=== PATIENT | female | born 1955 | race American Indian/Alaskan Native ===

== ENCOUNTER 2016-08-28 17:14 | Emergency (ER) | payer OTHER ==
--- NOTE | 2016-08-28 17:55 | Emergency Department Report ---
Chief Complaint: High BP Stated Complaint: HIGH BP/CHEST PAIN/RT ARM PAIN/LEG PAIN Time Seen by Provider: 08/28/16 17:49 - HPI History of Present Illness: 61-year-old female comes in for concern of elevated blood pressure. Patient reports that she went her PMD on Tuesday for cold-like symptoms 1 year and neck pain and upper back pain times a couple months. Patient reports she has not consistent with her blood pressure medications. Patient reports that her blood pressures been elevated for the last week while monitoring it. Patient does report that she took an extra half of verapamil around 2 PM. She reports her blood pressures been as high as 205 over over 90 she thinks. He complains of chest pain and nausea denies any vomiting. Having headaches lately. - Exam Vital Signs: Vital Signs 08/28/16 17:18 Temperature 99.0 F Pulse Rate 78 Respiratory 18 Rate Blood Pressure 165/97 O2 Sat by Pulse 98 Oximetry Physical Exam: Patient is alert and oriented. Cardio: Regular rate and rhythm notices systolic murmur Respiratory: Clear to auscultation bilateral Abdomen: Bowel sounds throughout nondistended no tenderness Extremities: There is no edema appreciated. MSE screening note: Focused history and physical exam performed. Due to findings the following was ordered: Chest pain protocol ordered patient be evaluated in the back ED Disposition for MSE Condition: Stable
[2016-08-28 18:14] LABS: Hematocrit 39.3 % (30.3-42.9); Hemoglobin 12.9 gm/dl (10.1-14.3); Mean Corpuscular HGB Conc 33 % (30-34); Mean Corpuscular Hemoglobin 28 pg (28-32); Mean Corpuscular Volume 87 fl (79-97); Platelet Count 224 K/mm3 (140-440); Red Blood Count 4.54 M/mm3 (3.65-5.03); Red Cell Distribution Width 13.7 % (13.2-15.2); White Blood Count 7.2 K/mm3 (4.5-11.0)
[2016-08-28 18:37] LABS: Creatine Kinase MB 4.4 ng/mL (0.0-4.0)
[2016-08-28 18:38] LABS: BUN/Creatinine Ratio 17.77; Blood Urea Nitrogen 16 mg/dL (7-17); Calcium 9.8 mg/dL (8.4-10.2); Carbon Dioxide 26 mmol/L (22-30); Chloride 102.9 mmol/L (98-107); Creatine Kinase 254 units/L (30-135); Glucose 98 mg/dL (65-100); Potassium 3.8 mmol/L (3.6-5.0); Sodium 141 mmol/L (137-145)
[2016-08-28 18:40] LABS: Anion Gap 16 mmol/L
[2016-08-29 03:38] VITALS: BP 153/78
--- NOTE | 2016-08-29 03:39 | Emergency Department Report ---
ED General Adult HPI - General Chief complaint: High BP Stated complaint: HIGH BP/CHEST PAIN/RT ARM PAIN/LEG PAIN Time Seen by Provider: 08/28/16 17:49 Source: patient Mode of arrival: Ambulatory Limitations: No Limitations - History of Present Illness Initial comments: 61-year-old female presents to the emergency department complaining of elevated blood pressure. Patient states that she saw her primary care physician on Tuesday. She states she was told her blood pressure was in the 170s at that time. She states that sometimes she forgets to take her blood pressure medications. Since that doctor's visit she has been monitoring her blood pressures at home. She states her systolic blood pressure ranges from 150 up to 205. She states when her blood pressure is that she has headaches and occasional chest pain. At this time, the patient reports no symptoms. There are no other complaints. -: Gradual, days(s) (4) Location: head, chest Severity scale (0 -10): 5 Quality: aching Consistency: intermittent Improves with: none Worsens with: none Associated Symptoms: denies other symptoms - Related Data Home Medications Medication Instructions Recorded Confirmed Last Taken Lisinopril [Zestril] 20 mg PO QDAY 05/14/13 05/14/13 05/13/13 Verapamil ER [Calan Sr] 180 mg PO 05/14/13 05/14/13 05/13/13 Previous Rx's Medication Instructions Recorded Last Taken Type EPINEPHrine [Epipen 2-Abelardo] 0.3 mg IM PRN #2 dose 05/14/13 Unknown Rx predniSONE [Deltasone] 5 mg PO QDAY #4 tab 05/14/13 Unknown Rx HYDROcodone/APAP 5-325 [[place] 1 each PO Q6HR PRN #12 tablet 06/25/15 Unknown Rx 5/325] Allergies Allergy/AdvReac Type Severity Reaction Status Date / Time milk Allergy Rash Verified 08/28/16 17:42 peanut Allergy Anaphylaxis Verified 08/28/16 17:42 chocolate flavor AdvReac NASAL Verified 08/28/16 17:43 CONGESTION strawberry AdvReac NASAL Verified 08/28/16 17:43 CONGESTION ED Review of Systems ROS: Stated complaint: HIGH BP/CHEST PAIN/RT ARM PAIN/LEG PAIN Other details as noted in HPI Comment: All other systems reviewed and negative Cardiovascular: as per HPI, chest pain Neurological: headache ED Past Medical Hx - Past Medical History Previous Medical History?: Yes Hx Hypertension: Yes - Surgical History Past Surgical History?: No - Family History Family history: no significant - Social History Smoking Status: Never Smoker Substance Use Type: Alcohol (occasional) - Medications Home Medications: Home Medications Medication Instructions Recorded Confirmed Last Taken Type EPINEPHrine [Epipen 2-Abelardo] 0.3 mg IM PRN #2 dose 05/14/13 Unknown Rx Lisinopril [Zestril] 20 mg PO QDAY 05/14/13 05/14/13 05/13/13 History Verapamil ER [Calan Sr] 180 mg PO 05/14/13 05/14/13 05/13/13 History predniSONE [Deltasone] 5 mg PO QDAY #4 tab 05/14/13 Unknown Rx HYDROcodone/APAP 5-325 [[place] 1 each PO Q6HR PRN #12 tablet 06/25/15 Unknown Rx 5/325] ED Physical Exam - General Limitations: No Limitations General appearance: alert, in no apparent distress - Head Head exam: Present: atraumatic, normocephalic - Eye Eye exam: Present: normal appearance, PERRL, EOMI - ENT ENT exam: Present: normal exam, normal orophraynx, mucous membranes moist - Neck Neck exam: Present: normal inspection, full ROM. Absent: tenderness - Respiratory Respiratory exam: Present: normal lung sounds bilaterally. Absent: respiratory distress - Cardiovascular Cardiovascular Exam: Present: regular rate, normal rhythm, normal heart sounds - GI/Abdominal GI/Abdominal exam: Present: soft, normal bowel sounds. Absent: distended, tenderness - Extremities Exam Extremities exam: Present: normal inspection, full ROM. Absent: tenderness - Back Exam Back exam: Present: normal inspection, full ROM. Absent: tenderness - Neurological Exam Neurological exam: Present: alert, oriented X3. Absent: motor sensory deficit - Skin Skin exam: Present: warm, dry, intact ED Course Vital Signs 08/28/16 08/29/16 08/29/16 17:18 01:58 02:52 Temperature 99.0 F 97.3 F L Pulse Rate 78 67 Respiratory 18 18 Rate Blood Pressure 165/97 141/90 154/74 O2 Sat by Pulse 98 100 Oximetry 08/29/16 08/29/16 03:00 03:13 Temperature Pulse Rate 58 L Respiratory 20 16 Rate Blood Pressure 144/76 O2 Sat by Pulse 100 Oximetry ED Medical Decision Making - Lab Data Result diagrams: 08/28/16 18:03 08/28/16 18:02 - EKG Data -: EKG Interpreted by Me EKG shows normal: sinus rhythm, axis, ST-T waves Rate: normal - EKG Data When compared to previous EKG there are: no significant change Interpretation: unchanged when compared t (12/02/2009), LVH, other (first degree AV block) - Medical Decision Making Lab results reviewed and discussed with the patient. Blood pressure has remained within acceptable limits in the emergency department. Patient counseled on the need to be consistent with taking her blood pressure medication. Patient will be discharged home at this time to follow up with her primary care physician. - Differential Diagnosis hypertension, electrolyte abnormality, ACS Critical care attestation.: If time is entered above; I have spent that time in minutes in the direct care of this critically ill patient, excluding procedure time. ED Disposition Clinical Impression: Essential hypertension Disposition: DISCHARGED TO HOME OR SELFCARE Is pt being admited?: No Condition: Stable Instructions: Hypertension (ED) Referrals: YESSI DUMONT MD [Primary Care Provider] - 3-5 Days Time of Disposition: 03:44
== END 2016-08-29 03:57 | disposition home or self-care (01) ==
LOC: ED 17:14
DX: I10 Essential (primary) hypertension (principal); R07.9 Chest pain, unspecified; Z91.010 Allergy to peanuts; Z91.011 Allergy to milk products; Z91.018 Allergy to other foods
CPT/HCPCS: 36415; 80048; 82550; 82553; 84484; 85025; 93005; 93010; 99283

== ENCOUNTER 2017-10-16 07:16 | Inpatient (IN) | payer OTHER ==
[2017-10-16 07:57] LABS: Basophils # (Auto) 0.1 K/mm3 (0.0-0.1); Basophils % (Auto) 0.8 % (0.0-1.8); Eosinophils # (Auto) 0.2 K/mm3 (0.0-0.4); Eosinophils % (Auto) 1.5 % (0.0-4.3); Hematocrit 42.8 % (30.3-42.9); Hemoglobin 13.8 gm/dl (10.1-14.3); Lymphocytes # (Auto) 1.8 K/mm3 (1.2-5.4); Lymphocytes % (Auto) 16.3 % (13.4-35.0); Mean Corpuscular HGB Conc 32 % (30-34); Mean Corpuscular Hemoglobin 28 pg (28-32); Mean Corpuscular Volume 88 fl (79-97); Monocytes # (Auto) 0.8 K/mm3 (0.0-0.8); Monocytes % (Auto) 7.4 % (0.0-7.3); Red Blood Count 4.88 M/mm3 (3.65-5.03); Red Cell Distribution Width 14.1 % (13.2-15.2)
[2017-10-16 08:02] LABS: Platelet Count 261 K/mm3 (140-440)
[2017-10-16 08:06] LABS: INR 0.9 (0.87-1.13)
[2017-10-16 08:07] LABS: Partial Thromboplastin Time 27.5 Sec. (24.2-36.6)
[2017-10-16 08:13] LABS: BUN/Creatinine Ratio 15; Blood Urea Nitrogen 12 mg/dL (7-17); Calcium 9.4 mg/dL (8.4-10.2); Hemolysis Index 4
--- NOTE | 2017-10-16 09:53 | Cat Scan Report ---
CT HEAD WITHOUT CONTRAST: HISTORY: Left sided arm numbness. TECHNIQUE: Sequential 2.5mm CT images. COMPARISON: none. FINDINGS: Cerebral Parenchyma: Within normal limits. Cerebellum: Within normal limits. Brainstem: Within normal limits. Ventricles: Normal. Sella: Normal. Extra-axial spaces: Normal. Basal Cisterns: Normal. Intracranial Hemorrhage: None. Midline Shift: None. Calvarium: Normal. Sinuses: Normal. Mastoid Air Cells: Normal. Visualized Orbits: Normal. IMPRESSION: Cranial CT scan within normal limits.
--- NOTE | 2017-10-16 09:57 | Cat Scan Report ---
CT SCAN OF THE CERVICAL SPINE: HISTORY: Left sided arm numbness, neck pain. TECHNIQUE: Contiguous 1.25 mm axial images of the cervical spine were obtained. Sagittal and coronal reformatted images. FINDINGS: There is normal alignment of the cervical spine. The body, pedicles and posterior ligaments are intact. No evidence of fracture or subluxation is seen. Moderate to severe multilevel degenerative disc disease and mild facet arthropathy are identified. C2-3: No significant abnormality. C3-4: Moderate to severe bony narrowing of the left neural foramen. C4-5: Moderate to severe bony narrowing of the bilateral neural foramen. Mild central canal narrowing from posterior spur and measure 8.4 mm in AP dimension. C5-6: Moderate to severe bony narrowing of the right neural foramen. C6-7: Moderate to severe bony narrowing of the bilateral neural foramen. C7-T1: No significant abnormality. IMPRESSION: No evidence for acute injury, bone lesion or malalignment. Moderate to severe multilevel cervical spondylosis with multilevel neural foraminal narrowing. Mild central canal narrowing at C4-5.
[2017-10-16] MEDS ORDERED: MORPHINE IV ONE ×2 (10:55→17:22)
[2017-10-16] MEDS ORDERED: ZOFRAN IV ONE (10:55)
[2017-10-16] MEDS ORDERED: ATIVAN IV ONE (10:56)
[2017-10-16] MEDS ORDERED: DECADRON IV ONE (10:57)
--- NOTE | 2017-10-16 10:58 | Emergency Department Report ---
ED Neuro Deficit HPI - General Chief Complaint: Neuro Symptoms/Deficit Stated Complaint: POSS STROKE/CANT LIFT LEFT ARM Source: patient Mode of arrival: Ambulatory Limitations: No Limitations - History of Present Illness Initial Comments: The patient presented to triage with the history that varied from what I obtained from her all my encounter. However, the triage history states "I think I had a stroke". I know it started yesterday around 6 PM". She states that she was vacuuming and then the symptoms started. Complains of left sided weakness numbness and pain to the left arm complained of numbness to the tongue. " When I spoke to the patient she was sitting in a very contorted. She complained primarily of left shoulder pain which radiated to her mid cervical area posteriorly. She told me she has had some mild to moderate headaches. However she did not complain of any numbness of the tongue nor any weakness whatsoever. She did state that her left arm felt somewhat numb. She clearly had pain in the shoulder and the neck. This is new for the patient. She does not have a history of pre-existing stroke nor cervical disc disease. The patient denied any difficulty with speech or vision or gait. She does not have any lower extremity weakness whatsoever or upper extremity weakness for that matter. She is a bit difficult to examine however because she does not want to move her left shoulder. -: Gradual, Last night Location: left arm Presenting Symptoms: Absent: Weak/Paralyzed One Side, Sudden, Severe Headache, Blurred/Loss of Vision, Facial Droop/Numbness, Unable to Speak Clearly, Altered Mental Status History of same: No Place: home Severity: moderate Quality: numb, other (pain left shoulder and neck) Improves With: none Worsens With: other (movement) Context: gradual onset Associated Symptoms: denies other symptoms, headaches (some headaches as above) Treatments Prior to Arrival: none - Related Data Home Medications: Home Medications Medication Instructions Recorded Confirmed Last Taken Lisinopril [Zestril] 20 mg PO QDAY 05/14/13 05/14/13 05/13/13 Verapamil ER [Calan Sr] 180 mg PO 05/14/13 05/14/13 05/13/13 Previous Rx's Medication Instructions Recorded Last Taken Type EPINEPHrine [Epipen 2-Abelardo] 0.3 mg IM PRN #2 dose 05/14/13 Unknown Rx predniSONE [Deltasone] 5 mg PO QDAY #4 tab 05/14/13 Unknown Rx HYDROcodone/APAP 5-325 [[place] 1 each PO Q6HR PRN #12 tablet 06/25/15 Unknown Rx 5/325] Allergies/Adverse Reactions: Allergies Allergy/AdvReac Type Severity Reaction Status Date / Time milk Allergy Rash Verified 08/28/16 17:42 peanut Allergy Anaphylaxis Verified 08/28/16 17:42 chocolate flavor AdvReac NASAL Verified 08/28/16 17:43 CONGESTION strawberry AdvReac NASAL Verified 08/28/16 17:43 CONGESTION ED Review of Systems ROS: Stated complaint: POSS STROKE/CANT LIFT LEFT ARM Other details as noted in HPI Constitutional: denies: chills, fever Eyes: denies: eye pain, eye discharge, vision change ENT: denies: ear pain, throat pain Respiratory: denies: cough, shortness of breath, wheezing Cardiovascular: denies: chest pain, palpitations Endocrine: no symptoms reported Gastrointestinal: denies: abdominal pain, nausea, diarrhea Genitourinary: denies: urgency, dysuria, discharge Musculoskeletal: as per HPI, other (neck and shoulder pain). denies: back pain , joint swelling, arthralgia Skin: denies: rash, lesions Neurological: as per HPI, headache, numbness. denies: weakness, paresthesias Psychiatric: denies: anxiety, depression Hematological/Lymphatic: denies: easy bleeding, easy bruising ED Past Medical Hx - Past Medical History Hx Hypertension: Yes - Surgical History Past Surgical History?: No - Social History Smoking Status: Never Smoker Substance Use Type: Alcohol - Medications Home Medications: Home Medications Medication Instructions Recorded Confirmed Last Taken Type EPINEPHrine [Epipen 2-Abelardo] 0.3 mg IM PRN #2 dose 05/14/13 Unknown Rx Lisinopril [Zestril] 20 mg PO QDAY 05/14/13 05/14/13 05/13/13 History Verapamil ER [Calan Sr] 180 mg PO 05/14/13 05/14/13 05/13/13 History predniSONE [Deltasone] 5 mg PO QDAY #4 tab 05/14/13 Unknown Rx HYDROcodone/APAP 5-325 [[place] 1 each PO Q6HR PRN #12 tablet 06/25/15 Unknown Rx 5/325] ED Neuro Physical Exam - General Limitations: Physical Limitation General appearance: alert, in no apparent distress Suspected Stroke: No (appears unlikely) - Head Head exam: Present: atraumatic, normocephalic - Eye Eye exam: Present: normal appearance, PERRL, EOMI. Absent: scleral icterus - ENT ENT exam: Present: mucous membranes moist - Neck Neck exam: Present: normal inspection, tenderness (some paravertebral discomfort ), other (carotids without bruit). Absent: meningismus - Respiratory Respiratory exam: Present: normal lung sounds bilaterally. Absent: respiratory distress - Cardiovascular Cardiovascular Exam: Present: regular rate, normal rhythm. Absent: systolic murmur, diastolic murmur, rubs, gallop - GI/Abdominal GI/Abdominal exam: Present: soft, normal bowel sounds. Absent: distended, tenderness, guarding, rebound, rigid - Extremities Exam Extremities exam: Present: normal inspection, other (some shoulder discomfort but motion is probably okay but patient does have some apprehension). Absent: normal capillary refill, calf tenderness - Back Exam Back exam: Present: normal inspection. Absent: CVA tenderness (R), CVA tenderness (L) - Neurological Exam Neurological exam: Present: alert, oriented X3, CN II-XII intact. Absent: motor sensory deficit - NIHSS Assessment Interval: Baseline 1a. Level of Consciousness: alert 1b. LOC Questions: answers correctly 1c. LOC Commands: performs tasks correctly 2. Best Gaze: normal 3. Visual: no visual loss 4. Facial Palsy: normal symmetrical movement 5b. Motor Arm Right: no drift 5a. Motor Arm Left: no drift 6a. Motor Leg Left: no drift 6b. Motor Leg Right: no drift 7. Limb Ataxia: absent 8. Sensory: normal 9. Best Language: no aphasia 10. Dysarthria: normal 11. Extinction/Inattention: no abnormality Total Score: 0 Stroke Severity: No Stroke Symptoms - Psychiatric Psychiatric exam: Present: normal affect, normal mood - Skin Skin exam: Present: warm, dry, intact, normal color. Absent: rash ED Course Vital Signs 10/16/17 07:21 Temperature 98.4 F Pulse Rate 86 Blood Pressure 172/85 O2 Sat by Pulse 97 Oximetry - Reevaluation(s) Reevaluation #1: Patient has a stroke score of 0. Her symptoms began yesterday at 6 PM. Therefore she is out of the window and not eligible for TPA. The patient underwent an extensive workup in the emergency department today. The CT the head was within normal limits CT of the cervical spine showed moderate to severe multilevel cervical spondylosis with multilevel neural foraminal narrowing and mild central canal narrowing at C5-C6. We proceeded to MRI of the cervical spine which showed multilevel moderate spinal canal with severe neural foraminal stenosis as described in the report. A CT of the brain was also obtained. This showed no acute intracranial abnormality. However there were scattered deep and subcortical white matter hyperintensities with a large differential diagnosis as per the radiology report. I spoke to the neurologist available ([phone]). She agreed that there was no consideration for acute for stroke in this patient. She recommended to complete the stroke workup. I left consultation for the orthopedist Dr. Arias. The patient was given aspirin and Decadron. She was admitted to the hospital for further care consultation and evaluation by Dr. Gonsales. 10/16/17 17:27 - Lab Data Result diagrams: 10/16/17 07:37 10/16/17 07:37 Lab Results 10/16/17 10/16/17 10/16/17 Range/Units 07:37 07:37 07:37 WBC 11.0 (4.5-11.0) K/mm3 RBC 4.88 (3.65-5.03) M/mm3 Hgb 13.8 (10.1-14.3) gm/dl Hct 42.8 (30.3-42.9) % MCV 88 (79-97) fl MCH 28 (28-32) pg MCHC 32 (30-34) % RDW 14.1 (13.2-15.2) % Plt Count 261 (140-440) K/mm3 Lymph % (Auto) 16.3 (13.4-35.0) % [place] % (Auto) 7.4 H (0.0-7.3) % Eos % (Auto) 1.5 (0.0-4.3) % Baso % (Auto) 0.8 (0.0-1.8) % Lymph # 1.8 (1.2-5.4) K/mm3 [place] # 0.8 (0.0-0.8) K/mm3 Eos # 0.2 (0.0-0.4) K/mm3 Baso # 0.1 (0.0-0.1) K/mm3 Seg Neutrophils % 74.0 H (40.0-70.0) % Seg Neutrophils # 8.2 H (1.8-7.7) K/mm3 PT 12.6 (12.2-14.9) Sec. INR 0.90 (0.87-1.13) APTT 27.5 (24.2-36.6) Sec. Thrombin Time (15.1-19.6) Sec. Sodium 136 L (137-145) mmol/L Potassium 4.2 (3.6-5.0) mmol/L Chloride 99.0 (98-107) mmol/L Carbon Dioxide 24 (22-30) mmol/L Anion Gap 17 mmol/L BUN 12 (7-17) mg/dL Creatinine 0.8 (0.7-1.2) mg/dL Estimated GFR > 60 ml/min BUN/Creatinine Ratio 15 % Glucose 108 H (65-100) mg/dL POC Glucose (70-105) Calcium 9.4 (8.4-10.2) mg/dL Troponin T < 0.010 (0.00-0.029) ng/mL Urine Color (Yellow) Urine Turbidity (Clear) Urine pH (5.0-7.0) Ur Specific [place] (1.003-1.030) Urine Protein (Negative) mg/dL Urine Glucose (UA) (Negative) mg/dL Urine Ketones (Negative) mg/dL Urine Blood (Negative) Urine Nitrite (Negative) Urine Bilirubin (Negative) Urine Urobilinogen (<2.0) mg/dL Ur Leukocyte Esterase (Negative) Urine WBC (Auto) (0.0-6.0) /HPF Urine RBC (Auto) (0.0-6.0) /HPF U Epithel Cells (Auto) (0-13.0) /HPF Urine Bacteria (Auto) (Negative) /HPF Urine Mucus /HPF 10/16/17 10/16/17 10/16/17 Range/Units 07:37 08:39 11:15 WBC (4.5-11.0) K/mm3 RBC (3.65-5.03) M/mm3 Hgb (10.1-14.3) gm/dl Hct (30.3-42.9) % MCV (79-97) fl MCH (28-32) pg MCHC (30-34) % RDW (13.2-15.2) % Plt Count (140-440) K/mm3 Lymph % (Auto) (13.4-35.0) % [place] % (Auto) (0.0-7.3) % Eos % (Auto) (0.0-4.3) % Baso % (Auto) (0.0-1.8) % Lymph # (1.2-5.4) K/mm3 [place] # (0.0-0.8) K/mm3 Eos # (0.0-0.4) K/mm3 Baso # (0.0-0.1) K/mm3 Seg Neutrophils % (40.0-70.0) % Seg Neutrophils # (1.8-7.7) K/mm3 PT (12.2-14.9) Sec. INR (0.87-1.13) APTT (24.2-36.6) Sec. Thrombin Time 16.0 (15.1-19.6) Sec. Sodium (137-145) mmol/L Potassium (3.6-5.0) mmol/L Chloride (98-107) mmol/L Carbon Dioxide (22-30) mmol/L Anion Gap mmol/L BUN (7-17) mg/dL Creatinine (0.7-1.2) mg/dL Estimated GFR ml/min BUN/Creatinine Ratio % Glucose (65-100) mg/dL POC Glucose 96 (70-105) Calcium (8.4-10.2) mg/dL Troponin T (0.00-0.029) ng/mL Urine Color Straw (Yellow) Urine Turbidity Clear (Clear) Urine pH 6.0 (5.0-7.0) Ur Specific [place] 1.006 (1.003-1.030) Urine Protein 30 mg/dl (Negative) mg/dL Urine Glucose (UA) Neg (Negative) mg/dL Urine Ketones Neg (Negative) mg/dL Urine Blood Sm (Negative) Urine Nitrite Neg (Negative) Urine Bilirubin Neg (Negative) Urine Urobilinogen < 2.0 (<2.0) mg/dL Ur Leukocyte Esterase Neg (Negative) Urine WBC (Auto) 1.0 (0.0-6.0) /HPF Urine RBC (Auto) 6.0 (0.0-6.0) /HPF U Epithel Cells (Auto) 1.0 (0-13.0) /HPF Urine Bacteria (Auto) 4+ (Negative) /HPF Urine Mucus Few /HPF Laboratory Results - last 24 hr 10/16/17 10/16/17 10/16/17 07:37 07:37 07:37 WBC 11.0 RBC 4.88 Hgb 13.8 Hct 42.8 MCV 88 MCH 28 MCHC 32 RDW 14.1 Plt Count 261 Lymph % (Auto) 16.3 [place] % (Auto) 7.4 H Eos % (Auto) 1.5 Baso % (Auto) 0.8 Lymph # 1.8 [place] # 0.8 Eos # 0.2 Baso # 0.1 Seg Neutrophils % 74.0 H Seg Neutrophils # 8.2 H PT 12.6 INR 0.90 APTT 27.5 Thrombin Time Sodium 136 L Potassium 4.2 Chloride 99.0 Carbon Dioxide 24 Anion Gap 17 BUN 12 Creatinine 0.8 Estimated GFR > 60 BUN/Creatinine Ratio 15 Glucose 108 H POC Glucose Calcium 9.4 Troponin T < 0.010 10/16/17 10/16/17 07:37 08:39 WBC RBC Hgb Hct MCV MCH MCHC RDW Plt Count Lymph % (Auto) [place] % (Auto) Eos % (Auto) Baso % (Auto) Lymph # [place] # Eos # Baso # Seg Neutrophils % Seg Neutrophils # PT INR APTT Thrombin Time 16.0 Sodium Potassium Chloride Carbon Dioxide Anion Gap BUN Creatinine Estimated GFR BUN/Creatinine Ratio Glucose POC Glucose 96 Calcium Troponin T - EKG Data EKG shows normal: sinus rhythm, axis, intervals, QRS complexes, ST-T waves Rate: normal, tachycardia, bradycardia Interpretation: no acute changes - Radiology Data Radiology results: report reviewed - Thrombolytic Inclusion/Exclusion Thrombolytic Exclusion Criteria: Symptom Onset > 3 Hours Critical care attestation.: If time is entered above; I have spent that time in minutes in the direct care of this critically ill patient, excluding procedure time. ED Disposition Clinical Impression: Diffuse idiopathic skeletal hyperostosis, Abnormal brain MRI, Essential hypertension Cephalalgia Qualifiers: Headache type: unspecified Headache chronicity pattern: acute headache Intractability: not intractable Qualified Code(s): R51 - Headache Disposition: -09 OP ADMIT IP TO THIS HOSP Is pt being admited?: Yes Does the pt Need Aspirin: Yes Condition: Stable Instructions: Hypertension (ED) Referrals: PRIMARY CARE, [Primary Care Provider] - 3-5 Days Time of Disposition: 17:33
[2017-10-16 11:27] LABS: Bacteria,Urine 4+ /HPF (Negative); Bilirubin,Urine NEG (Negative); Blood,Urine SM (Negative); Color,Urine Straw (Yellow); Mucus,Urine FEW /HPF; Urobilinogen,Urine < 2.0 mg/dL (<2.0)
[2017-10-16] MEDS ORDERED: MORPHINE IV NR (12:00)
--- NOTE | 2017-10-16 16:09 | Magnetic Resonance Report ---
FINAL REPORT EXAM: MR BRAIN WO CON HISTORY: headache acute l arm numbness/pain TECHNIQUE: Multi sequence, Multiplanar MR imaging is acquired without administration of gadolinium intravenous contrast. PRIORS: Head CT 10/16/2017 FINDINGS: There is no restricted diffusion or abnormal susceptibility. The ventricles and cisterns and sulci are within normal limits. No midline shift or herniation. No intraparenchymal mass , mass effect or hemorrhage. Vascular flow voids are unremarkable. There are many scattered deep and subcortical white matter T2/FLAIR hyperintense foci, the largest of which is in the right centrum semiovale a just superior to the occipital horn of the right lateral ventricle on axial series 6 and 7, image 17, which measures about 14 x 10 x 5 millimeters. Normal spherical shape of the globes. There is a right-sided maxillary sinus mucosal retention cyst. No other abnormal signal within the paranasal sinuses or mastoid aircells. IMPRESSION: No acute intracranial abnormality. Scattered deep and subcortical white matter hyperintensities may be related to demyelinating disease, prior infection or inflammation, as well as vascular etiologies (microvascular angiopathy is the most common cause of this appearance.)
--- NOTE | 2017-10-16 16:27 | Magnetic Resonance Report ---
FINAL REPORT EXAM: MR CERVICAL SPINE WO CON HISTORY: l arm numbness central canal narrowing on CT TECHNIQUE: Multi sequence, multiplanar MR imaging was obtained through the cervical spine without contrast. PRIORS: Cervical spine CT of the same date FINDINGS: Examination is compromised by motion artifact. The imaged portion of the posterior fossa is unremarkable. The cervical spinal cord is normal in caliber and grossly normal in T2 weighted signal characteristics within limits of motion artifact. There is pulsation artifact. No epidural space abnormality identified within limits of motion. The paraspinal soft tissues including imaged mucosal spaces of the neck are unremarkable. There is endplate sclerosis and degenerative fatty infiltration at C4, C5 and C6. Vertebral body heights and marrow signal are otherwise within normal limits. No listhesis. At C2-C3 there is no significant spinal canal or neuroforaminal narrowing. At C3-C4 there is a posterior disc osteophyte complex with asymmetric left-sided uncovertebral joint hypertrophy resulting in mild spinal canal stenosis and severe left and mild right neural foraminal stenosis. At C4-C5 there is a posterior disc osteophyte complex resulting in moderate narrowing of the spinal canal with severe bilateral neural foraminal narrowing. At C5-C6 there is a small posterior disc osteophyte complex with asymmetric right uncovertebral joint hypertrophy resulting in mild spinal canal stenosis and severe right and mild left neural foraminal stenosis. At C6-C7 there is a small posterior disc osteophyte complex with uncovertebral joint hypertrophy resulting in mild spinal canal stenosis and severe left and moderate right neural foraminal stenosis. AT C7-T1 there is no significant spinal canal or neural foraminal narrowing. IMPRESSION: Multilevel moderate spinal canal and severe neural foraminal stenosis, as detailed above.
--- NOTE | 2017-10-16 16:54 | History and Physical Report ---
History of Present Illness Chief complaint: I felt weak on my left side. History of present illness: 62 YO Female with HTN, Obesity, DISH Syndrome presents to ED for evaluation. Pt states that she experienced acute onset Left Arm weakness, and numbness to her face and tongue. Pt states that the symptoms began around 1800 hrs on the day prior to presentation to the hospital. Pt states that symptoms are recurrent, and now associated with Left shoulder pain. Pt denies fever, chills, CP, palpitations, NVD, Syncope, prolonged travel/immobility, individual/family history of DVT/PE, or recent ill contacts. Pt seen and evaluated in ED and found to have symptoms consistent with acute CVA. Pt outside therapeutic window for TPA. Teleneurology consulted. Pt admitted to telemetry. Past History Past Medical History: hypertension, other (Obesity, DISH syndrome) Past Surgical History: No surgical history, Other (reviewed) Social history: , lives with family. denies: smoking, alcohol abuse, prescription drug abuse Family history: diabetes, hypertension Medications and Allergies Allergies Allergy/AdvReac Type Severity Reaction Status Date / Time milk Allergy Rash Verified 08/28/16 17:42 peanut Allergy Anaphylaxis Verified 08/28/16 17:42 chocolate flavor AdvReac NASAL Verified 08/28/16 17:43 CONGESTION strawberry AdvReac NASAL Verified 08/28/16 17:43 CONGESTION Home Medications Medication Instructions Recorded Confirmed Last Taken Type EPINEPHrine [Epipen 2-Abelardo] 0.3 mg IM PRN #2 dose 05/14/13 Unknown Rx Lisinopril [Zestril] 20 mg PO QDAY 05/14/13 05/14/13 05/13/13 History Verapamil ER [Calan Sr] 180 mg PO 05/14/13 05/14/13 05/13/13 History predniSONE [Deltasone] 5 mg PO QDAY #4 tab 05/14/13 Unknown Rx HYDROcodone/APAP 5-325 [[place] 1 each PO Q6HR PRN #12 tablet 06/25/15 Unknown Rx 5/325] Active Meds: Active Medications Morphine Sulfate (Morphine) 2 mg IV ONCE.ED NR Stop: 10/16/17 23:59 Review of Systems Constitutional: no weight loss, no weight gain, no fever, no chills Ears, nose, mouth and throat: no ear pain, no ear discharge, no tinnitis, no decreased hearing, no nose pain, no nasal congestion Breasts: no change in shape, no swelling, no mass Cardiovascular: no chest pain, no orthopnea, no palpitations, no rapid/ irregular heart beat, no edema, no syncope, no lightheadedness Respiratory: no cough, no cough with sputum, no excessive sputum, no hemoptysis , no shortness of breath, no dyspnea on exertion Gastrointestinal: no abdominal pain, no nausea, no vomiting, no diarrhea, no constipation, no change in bowel habits Genitourinary Female: no pelvic pain, no flank pain, no menorrhagia, no dysuria , no urinary frequency, no urgency, no stress incontinence Rectal: no pain, no incontinence, no bleeding, no itching Musculoskeletal: no neck stiffness, no neck pain, no shooting arm pain, no arm numbness/tingling, no low back pain, no shooting leg pain Integumentary: no rash, no pruritis, no redness, no sores, no wounds, no jaundice Neurological: transient paralysis, weakness, numbness, no head injury, no paralysis, no seizures, no vertigo, no headaches, no change in speech Psychiatric: no anxiety, no memory loss, no change in sleep habits, no sleep disturbances, no insomnia, no hypersomnia, no change in appetite Endocrine: no cold intolerance, no heat intolerance, no polyphagia, no excessive thirst, no polydipsia, no polyuria, no nocturia Hematologic/Lymphatic: no easy bruising, no easy bleeding, no lymphadenopathy, no lymphedema Allergic/Immunologic: no urticaria, no allergic rhinitis, no wheezing Exam - Constitutional Vitals: Temp Pulse Resp BP Pulse Ox 98.4 F 86 172/85 97 10/16/17 07:21 10/16/17 07:21 10/16/17 07:21 10/16/17 07:21 General appearance: Present: no acute distress, mild distress - EENT Eyes: Present: PERRL ENT: hearing intact, clear oral mucosa - Neck Neck: Present: supple, normal ROM - Respiratory Respiratory effort: normal Respiratory: bilateral: CTA - Cardiovascular Heart Sounds: Present: S1 & S2. Absent: rub, click - Extremities Extremities: pulses symmetrical, No edema Peripheral Pulses: within normal limits - Abdominal General gastrointestinal: Present: soft, non-tender, non-distended, normal bowel sounds Female genitourinary: Present: normal - Integumentary Integumentary: Present: clear, warm, dry - Musculoskeletal Musculoskeletal: left sided weakness - Psychiatric Psychiatric: appropriate mood/affect, intact judgment & insight - Neurologic Neurologic: CNII-XII intact, moves all extremities Results - Labs CBC & Chem 7: 10/16/17 07:37 10/16/17 07:37 Labs: Abnormal lab results 10/16/17 10/16/17 Range/Units 07:37 07:37 Arthur % (Auto) 7.4 H (0.0-7.3) % Seg Neutrophils % 74.0 H (40.0-70.0) % Seg Neutrophils # 8.2 H (1.8-7.7) K/mm3 Sodium 136 L (137-145) mmol/L Glucose 108 H (65-100) mg/dL Assessment and Plan - Patient Problems (1) CVA (cerebral vascular accident) Current Visit: Yes Status: Acute Qualifiers: Precerebral and cerebral artery: middle cerebral artery Laterality of affected vessel: right Plan to address problem: Stroke Protocol: CT Head, MRI Brain, MRA Brain, Echo, Carotid Doppler, PT/OT/ Speech therapy, antiplatelet therapy, lipid panel, low cholesterol diet. (2) HTN (hypertension) Current Visit: Yes Status: Acute Qualifiers: Hypertension type: essential hypertension Qualified Code(s): I10 - Essential (primary) hypertension Plan to address problem: Monitor bp q shift, continue medical management, permissive hypertension overnight, IV Hydralazine prn (3) Obesity (BMI 30-39.9) Current Visit: Yes Status: Acute Plan to address problem: Balanced diet, increased physical activity at discharge. (4) Diffuse idiopathic skeletal hyperostosis Current Visit: Yes Status: Acute Plan to address problem: MRI, MRA, pain control, (5) DVT prophylaxis Current Visit: Yes Status: Acute
[2017-10-16] MEDS ORDERED: MILK OF MAGNESIA PO PRN (16:56)
[2017-10-16] MEDS ORDERED: TYLENOL PO PRN (16:56)
[2017-10-16] MEDS ORDERED: PROVENTIL IH PRN (16:56)
[2017-10-16] MEDS ORDERED: PHENERGAN PR PRN (16:56)
[2017-10-16] MEDS ORDERED: SODIUM CHLORIDE FLUSH SYRINGE 10 ML IV PRN (16:56)
[2017-10-16] MEDS ORDERED: ZOFRAN IV PRN (16:56)
[2017-10-16] MEDS ORDERED: DULCOLAX PR PRN (16:56)
[2017-10-16] MEDS ORDERED: REGLAN PO PRN (16:56)
[2017-10-16] MEDS ORDERED: NORCO 5/325 PO PRN (16:57)
[2017-10-16] MEDS ORDERED: ASPIRIN PO ONE (17:22)
--- NOTE | 2017-10-16 19:29 | XRay Report ---
FINAL REPORT PROCEDURE: XR CHEST 1V AP TECHNIQUE: Chest radiograph anteroposterior view. CPT 27136 HISTORY: hypertension COMPARISON: No prior studies are available for comparison. FINDINGS: Heart: Normal. Mediastinum/Vessels: Normal. Lungs/Pleural space: No infiltrate, effusion, or pneumothorax. Bony thorax: Thoracic spine dextroscoliosis. Life support devices: None. IMPRESSION: No radiographic evidence of acute cardiopulmonary abnormality.
[2017-10-17 06:44] LABS: Chol/HDL Ratio 2.75 %
--- NOTE | 2017-10-17 10:42 | Magnetic Resonance Report ---
MRA HEAD WITHOUT CONTRAST HISTORY: Stroke. [id number] imaging with MIP reformations of the [place] of [place] is submitted. The arteries appear widely patent and free of hemodynamically significant stenosis, aneurysm or dissection. IMPRESSION: Unremarkable MRA head.
[2017-10-17] MEDS: ZESTRIL PO SCH (13:12)
[2017-10-17] MEDS: ASPIRIN PO SCH (14:02)
[2017-10-17] MEDS: DELTASONE PO SCH (14:03)
--- NOTE | 2017-10-17 14:15 | Progress Note ---
Assessment and Plan Assessment and plan: Left arm weakness may be radiculopathy. MRI Brain negative for stroke. neurology to see. Abnormal MRI Brain suggesting poss demyelinating disease.Neurology to evaluate. Diffuse idiopathic skeletal hyperostosis by history. Hypertension. BP stable on Lisinopril Obesity. I counseled her on diet and exercise to lose weihght. DVT prophylaxis with Heparin subcut. History Interval history: Numbness face resolved Left armweakness resolved Hospitalist Physical - Physical exam Narrative exam: Gen appearance: Not in acute distress, lying in bed HEENT:Normocephalic, atraumatic Neck:Supple, no JVD Lungs: Clear to auscultation bilaterally, no crackles , no wheeze Heart: S1 and S2 regular, no murmurs, rubs or gallop Abdomen: soft, mild tender diffusely, no rebound tenderness, non distended, normal bowel sounds Ext: No edema, no clubbing, no cyanosis Neuro: Awake,alert,oriented x 3, normal speech, no focal signs Psych: Normal mood - Constitutional Vitals: Temp Pulse Resp BP Pulse Ox 98.0 F 67 20 128/69 100 10/17/17 11:05 10/17/17 11:05 10/17/17 11:05 10/17/17 11:05 10/17/17 11:05 General appearance: Present: no acute distress Results - Labs CBC & Chem 7: 10/16/17 07:37 10/16/17 07:37 Labs: Laboratory Last Values WBC 11.0 K/mm3 (4.5-11.0) 10/16/17 07:37 RBC 4.88 M/mm3 (3.65-5.03) 10/16/17 07:37 Hgb 13.8 gm/dl (10.1-14.3) 10/16/17 07:37 Hct 42.8 % (30.3-42.9) 10/16/17 07:37 MCV 88 fl (79-97) 10/16/17 07:37 MCH 28 pg (28-32) 10/16/17 07:37 MCHC 32 % (30-34) 10/16/17 07:37 RDW 14.1 % (13.2-15.2) 10/16/17 07:37 Plt Count 261 K/mm3 (140-440) 10/16/17 07:37 Lymph % (Auto) 16.3 % (13.4-35.0) 10/16/17 07:37 [place] % (Auto) 7.4 % (0.0-7.3) H 10/16/17 07:37 Eos % (Auto) 1.5 % (0.0-4.3) 10/16/17 07:37 Baso % (Auto) 0.8 % (0.0-1.8) 10/16/17 07:37 Lymph # 1.8 K/mm3 (1.2-5.4) 10/16/17 07:37 [place] # 0.8 K/mm3 (0.0-0.8) 10/16/17 07:37 Eos # 0.2 K/mm3 (0.0-0.4) 10/16/17 07:37 Baso # 0.1 K/mm3 (0.0-0.1) 10/16/17 07:37 Seg Neutrophils % 74.0 % (40.0-70.0) H 10/16/17 07:37 Seg Neutrophils # 8.2 K/mm3 (1.8-7.7) H 10/16/17 07:37 PT 12.6 Sec. (12.2-14.9) 10/16/17 07:37 INR 0.90 (0.87-1.13) 10/16/17 07:37 APTT 27.5 Sec. (24.2-36.6) 10/16/17 07:37 Thrombin Time 16.0 Sec. (15.1-19.6) 10/16/17 07:37 Sodium 136 mmol/L (137-145) L 10/16/17 07:37 Potassium 4.2 mmol/L (3.6-5.0) 10/16/17 07:37 Chloride 99.0 mmol/L (98-107) 10/16/17 07:37 Carbon Dioxide 24 mmol/L (22-30) 10/16/17 07:37 Anion Gap 17 mmol/L 10/16/17 07:37 BUN 12 mg/dL (7-17) 10/16/17 07:37 Creatinine 0.8 mg/dL (0.7-1.2) 10/16/17 07:37 Estimated GFR > 60 ml/min 10/16/17 07:37 BUN/Creatinine Ratio 15 % 10/16/17 07:37 Glucose 108 mg/dL (65-100) H 10/16/17 07:37 POC Glucose 96 (70-105) 10/16/17 08:39 Calcium 9.4 mg/dL (8.4-10.2) 10/16/17 07:37 Troponin T < 0.010 ng/mL (0.00-0.029) 10/16/17 07:37 Triglycerides 95 mg/dL (2-149) 10/17/17 05:34 Cholesterol 165 mg/dL (50-199) 10/17/17 05:34 LDL Cholesterol Direct 86 mg/dL (50-130) 10/17/17 05:34 HDL Cholesterol 60 mg/dL (40-59) H 10/17/17 05:34 Cholesterol/HDL Ratio 2.75 % 10/17/17 05:34 Urine Color Straw (Yellow) 10/16/17 11:15 Urine Turbidity Clear (Clear) 10/16/17 11:15 Urine pH 6.0 (5.0-7.0) 10/16/17 11:15 Ur Specific [place] 1.006 (1.003-1.030) 10/16/17 11:15 Urine Protein 30 mg/dl mg/dL (Negative) 10/16/17 11:15 Urine Glucose (UA) Neg mg/dL (Negative) 10/16/17 11:15 Urine Ketones Neg mg/dL (Negative) 10/16/17 11:15 Urine Blood Sm (Negative) 10/16/17 11:15 Urine Nitrite Neg (Negative) 10/16/17 11:15 Urine Bilirubin Neg (Negative) 10/16/17 11:15 Urine Urobilinogen < 2.0 mg/dL (<2.0) 10/16/17 11:15 Ur Leukocyte Esterase Neg (Negative) 10/16/17 11:15 Urine WBC (Auto) 1.0 /HPF (0.0-6.0) 10/16/17 11:15 Urine RBC (Auto) 6.0 /HPF (0.0-6.0) 10/16/17 11:15 U Epithel Cells (Auto) 1.0 /HPF (0-13.0) 10/16/17 11:15 Urine Bacteria (Auto) 4+ /HPF (Negative) 10/16/17 11:15 Urine Mucus Few /HPF 10/16/17 11:15
--- NOTE | 2017-10-17 20:01 | Consultation ---
History of Present Illness Consult date: 10/17/17 Requesting physician: GEENA ROSS Reason for Consult: left side weakness Chief complaint: left arm weakness with pain from shoulder to wrist History of present illness: This 62-year-old right-handed -[place]alese female per Dr. Gonsales "states that she experienced acute onset Left Arm weakness, and numbness to her face and tongue. Pt states that the symptoms began around 1800 hrs on the day prior to presentation to the hospital. Pt states that symptoms are recurrent, and now associated with Left shoulder pain." She had symptoms starting 2 days ago with sharp pain in the left upper arm radiating to her shoulder for left ear for which she took ibuprofen and used icy hot without relief. She attributed this to being stressed out from having initially forgotten to pay for an item at [employer] that she had to go back into the store to pay for. She had lifted a case of 30 bottles of water there but states she has done so in the past without incident. She then developed forearm aching pain to the wrist on the left with some pain particularly with trying to retroflex her left arm without numbness or tingling. Blood pressure was initially 172/85. After pain medication at the emergency room, though she still had some pain during MRI, it then went away and has not recurred today even with lifting her left arm over her head as she illustrates today. Brain MRI shows multiple small lacunes and a lesion above the right occipital horn which is a bit fuzzy suggesting possibly demyelinating plaque versus lacunar but nothing acute. She was reported to have had some numbness of her tongue but states she just was checking it and couldn't feel it against her left teeth but didn't have any feeling of numbness without that maneuver and had no difficulty speaking or swallowing. Cervical spine MRI shows multilevel disc disease with some cord compression at C4-5 and C5-6. Narrowing of foramina is difficult for me to decipher but was read as being worst at the left foramen at C6-7 by the radiologist. She denies any usual neck pain or symptoms of cervical radiculopathy and has had no numbness or tingling in the arm. Echocardiogram was negative for bubbles. Duplex of carotids is pending. Past History Past Medical History: hypertension, other (Obesity, DISH syndrome) Past Surgical History: No surgical history, Other (reviewed) Social history: , lives with family, other (never illicit drugs. 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 denies: smoking, alcohol abuse (one drink twice a year), prescription drug abuse Family history: diabetes, hypertension (mother), other (no history of epilepsy) . denies: stroke Medications and Allergies Allergies Allergy/AdvReac Type Severity Reaction Status Date / Time milk Allergy Rash Verified 08/28/16 17:42 peanut Allergy Anaphylaxis Verified 08/28/16 17:42 chocolate flavor AdvReac NASAL Verified 08/28/16 17:43 CONGESTION strawberry AdvReac NASAL Verified 08/28/16 17:43 CONGESTION Home Medications Medication Instructions Recorded Confirmed Last Taken Type EPINEPHrine [Epipen 2-Abelardo] 0.3 mg IM PRN #2 dose 05/14/13 10/16/17 Unknown Rx Lisinopril [Zestril] 20 mg PO QDAY 05/14/13 10/16/17 10/16/17 History Verapamil ER [Calan Sr] 180 mg PO PRN 05/14/13 10/16/17 05/13/13 History Active Meds: Active Medications Acetaminophen (Tylenol) 650 mg PO Q4H PRN PRN Reason: Pain, Mild (1-3) Acetaminophen/Hydrocodone Bitart ([place] 5/325) 1 each PO Q6H PRN PRN Reason: Pain Albuterol (Proventil) 2.5 mg IH Q3HRT PRN PRN Reason: Shortness Of Breath Aspirin (Aspirin) 325 mg PO QDAY [facility] Last Admin: 10/17/17 14:02 Dose: 325 mg Bisacodyl (Dulcolax) 10 mg [place] QDAY PRN PRN Reason: Constipation Lisinopril (Zestril) 20 mg PO QDAY [facility] Last Admin: 10/17/17 13:12 Dose: Not Given Magnesium Hydroxide (Milk Of Magnesia) 30 ml PO Q4H PRN PRN Reason: Constipation Metoclopramide HCl (Reglan) 10 mg PO Q6H PRN PRN Reason: Nausea And Vomiting Ondansetron HCl (Zofran) 4 mg IV Q8H PRN PRN Reason: N/V unrelieved by Reglan Prednisone (Deltasone) 5 mg PO QDAY [facility] Last Admin: 10/17/17 14:03 Dose: Not Given Promethazine HCl (Phenergan) 25 mg [place] Q6H PRN PRN Reason: Nausea And Vomiting Sodium Chloride (Sodium Chloride Flush Syringe 10 Ml) 10 ml IV PRN PRN PRN Reason: LINE FLUSH Review of Systems All systems: negative Constitutional: other (had frontal headache 2 days prior to onset of the symptoms and also on the day of symptoms but without nausea or dizziness. No snoring or napping or sleepiness driving. Little bit of short-term memory problems normal for age such as some delay in word finding and sometimes going into a room and forgetting why she went there) Physical Examination - Vital Signs Vital Signs: Vital Signs Temp Pulse BP Pulse Ox 98.4 F 86 172/85 97 10/16/17 07:21 10/16/17 07:21 10/16/17 07:21 10/16/17 07:21 - Physical Exam Narrative exam: General Appearance: well developed but obese (per BMI) mid 60s -[place] female in [facility]. HEENT: atraumatic, normocephalic; no bruits, 2+ Brittaney without soreness or induration or enlargement, sclerae nonicteric. Oropharynx pink and moist. Neck: supple, no bruits. Heart: no murmur or extra sounds. Extremities: no clubbing, cyanosis or edema. 2+ dorsalis pedis pulses bilaterally. Shoulder range of motion: Full on the left. Neurologic Exam: Mental Status: Awake, alert, oriented X 3, speech is clear, names pen and calls the tip the ink of the pen but names comb and its teeth, and abstracts well. Names President and Gas Well Drilling Manager, serial 7's with one error but gets 5+7 = 12 , no right-left confusion, gets 3 of 3 objects at 3 minutes on a second batch, spells WORLD backwards correctly. Cranial Nerves: lee full, no papilledema, SVPs present, PERRLA, EOMs full without nystagmus or diplopia, facial sensation intact to pinprick and light touch, no facial weakness, Samuel is midline, palate rises symmetrically to phonation, shoulder shrug is 5 X 2, tongue protrudes midline. Cerebellar: finger to nose slightly dysmetric at the endpoints left worse than right, tandem is normal. Sensory: intact to light touch, pinprick, and vibrations. Double simultaneous stimulation is intact. Motor Exam Upper Extremities: no drift or pronation, Herbert intact. Link Knitting Machine Operator are 5 X 2, tone is normal. No atrophy or fasciculations are noted visually. Motor Exam Lower Extremities: walks well on heels and toes and hops equally on both sides. Herbert intact. Tone is normal. No atrophy or fasciculations are noted visually. Reflexes: Palmomental, snout and jaw jerk are negative. Triceps are 1+, biceps are 2 on the right and 2+ in the left and brachioradialis are 1+ bilaterally. Ricardo's is negative bilaterally. Knee jerks are 1+ and ankle jerks are 2 on the right and 1+ on the left without clonus. Toes are downgoing bilaterally to Babinski testing. Results - Laboratory Findings CBC and BMP: 10/16/17 07:37 10/16/17 07:37 Abnormal Lab Findings: Abnormal Labs 10/16/17 10/16/17 10/17/17 07:37 07:37 05:34 [place] % (Auto) 7.4 H Seg Neutrophils % 74.0 H Seg Neutrophils # 8.2 H Sodium 136 L Glucose 108 H HDL Cholesterol 60 H Assessment and Plan Impression: 1. Lacunar strokes 2. Possible demyelinating disease, brain 3. Cervical radiculopathy. Plan: 1. Reviewed cervical spine MRI with her but did not review much her brain MRI with her. 2. I told her she might need traction for her neck she developed recurrent symptoms but not now. 3. Could treat an acute episode with IV steroids if the scenario at that time suggests demyelinating disease. With only one possible lesion for demyelinating disease, would not treat as if she has it. 4. Does not need orthopedic consultation and states symptoms have resolved and has not had similar symptoms previously. 5. I suggested she avoid lifting given her disc disease since it could trigger more symptoms of radiculopathy. 45 minutes spent including review of 100s of MRI images. Thank you for an interesting consultation on this pleasant mid 60s lady.
[2017-10-18] MEDS ORDERED: HEPARIN SUB-Q SCH (06:00)
[2017-10-18 08:39] VITALS: BP 107/53
--- NOTE | 2017-10-18 10:37 | Discharge Summary ---
Providers - Providers Date of Admission: 10/16/17 16:56 Attending physician: GUANAKITO PEARCE MD 10/16/17 16:56 Occupational Therapy Evaluate and Treat [CONS] Routine Comment: Reason For Exam: Neuro deficits Physical Therapy Evaluation and Treat [CONS] Routine Comment: Reason For Exam: Neuro deficits 10/16/17 16:57 Speech Therapy Evaluation and Treat [CONS] Routine Reason For Exam: swallow eval 10/16/17 17:16 Consult to Physician [CONS] Urgent Consulting Provider: KASHIF TOMAS Reason For Exam: DISH Notified:: left message on cell 10/17/17 08:06 Consult to Physician [CONS] Routine Consulting Provider: ARAVIND CALLE Reason For Exam: left sided weakness, abnormal MRI Brain Place consult to:: Left voicemail Notified:: yes Phone number called:: [phone] 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 Pt states that she experienced acute onset Left Arm weakness, and numbness to her face and tongue Left arm weakness may be radiculopathy. MRI Brain negative for stroke. neurology to see. Abnormal MRI Brain suggesting poss demyelinating disease.Neurology to evaluate. Diffuse idiopathic skeletal hyperostosis by history. Hypertension. BP stable on Lisinopril Obesity. I counseled her on diet and exercise to lose weihght. DVT prophylaxis with Heparin subcut. Disposition: DC-01 TO HOME OR SELFCARE Time spent for discharge: 33 minutes Core Measure Documentation - Core Measures Any of the following diagnoses?: stroke - Stroke Discharge Requirements Statin for LDL = or >70 mg/dl on DC: Yes Anticoag for atrial fib/atrial flutter: Not Applicable Antithrombotic for ischemic stroke: Yes Exam - Constitutional Vitals: Temp Pulse Resp BP Pulse Ox 98.0 F 53 L 18 107/53 100 10/18/17 04:40 10/18/17 08:37 10/18/17 08:37 10/18/17 08:37 10/18/17 08:37 Plan Follow up with: PRIMARY CAREMD [Primary Care Provider] - 3-5 Days Prescriptions: Pravastatin Sodium [Pravastatin] 10 mg PO QHS #30 tablet Aspirin EC [Aspirin Enteric Coated TAB] 81 mg PO QDAY #30 tablet. HYDROcodone/APAP 5-325 [[place] 5-325 mg TAB] 1 each PO Q6H PRN #14 tablet PRN Reason: Pain Lisinopril [Zestril TAB] 20 mg PO QDAY #30 tablet predniSONE [Deltasone] 5 mg PO QDAY #30 tablet
[2017-10-18] MEDS: DELTASONE PO SCH (11:45)
[2017-10-18] MEDS: ASPIRIN PO SCH (11:45)
[2017-10-18] MEDS: ZESTRIL PO SCH (11:45)
== END 2017-10-18 15:08 | disposition home or self-care (01) | DRG 74 ==
LOC: ED 07:16 → 4A 16:56
PROVIDERS: ADMIT Internal Medicine; ATTEND Internal Medicine
DX: M54.12 Radiculopathy, cervical region (principal); Z68.35 Body mass index [BMI] 35.0-35.9, adult; I10 Essential (primary) hypertension; Z82.49 Family history of ischemic heart disease and other diseases of the circulatory system; Z83.3 Family history of diabetes mellitus; Z91.040 Latex allergy status; Z91.010 Allergy to peanuts; Z91.018 Allergy to other foods; Z79.899 Other long term (current) drug therapy; M48.10 Ankylosing hyperostosis [Forestier], site unspecified; Z71.3 Dietary counseling and surveillance
CPT/HCPCS: 36415; 70450; 70544; 70551; 71045; 72125; 72141; 80048; 80061; 81001; 82962; 84484; 85025; 85610; 85670; 85730; 93005; 93010; 93306; 93880; 96374; 96375; 96376; G8978-GP; G8979-GP; J1100; J1644; J2060; J2270; J2405; J7512